=== PATIENT | female | born 1985 | race Hispanic/Latino ===

== ENCOUNTER 2022-01-03 22:43 | Emergency (ER) | payer BC ==
[2022-01-04] MEDS ORDERED: ONDANSETRON 4MG INJ IVP ONE (02:30)
[2022-01-04] MEDS ORDERED: KETOROLAC 15MG/ML VIAL (15MG/ML) IV ONE (02:30)
[2022-01-04] MEDS ORDERED: MORPHINE 4 MG SYG IVP ONE (02:30)
[2022-01-04 02:35] VITALS: BP 116/63
== END 2022-01-04 02:47 | disposition home or self-care (01) ==
LOC: EDH 22:43
DX: S83.92XA Sprain of unspecified site of left knee, initial encounter (principal); X58.XXXA Exposure to other specified factors, initial encounter; Y93.89 Activity, other specified; Y92.89 Other specified places as the place of occurrence of the external cause; Y99.8 Other external cause status
CPT/HCPCS: 73562 ×2; 96374; 96375; 99284; J1885; J2270; J2405